=== PATIENT | male | born 1940 | race Caucasian/White ===

== ENCOUNTER 2016-07-21 07:39 | Emergency (ER) | payer OTHER ==
[~2016-07-21] VITALS: Ht 180.3 cm; Wt 66.4 kg
[~2016-07-21 07:39] MED LIST: ALBUTEROL SULF8.5 GM IH; LEVAQUIN750 MG PO
[2016-07-21 09:09] LABS: HEMATOCRIT 42.1 % (38.0-50.0); MCH 28.6 PG (29.0-34.0); MCHC 32.5 G/DL (30.0-36.0); MCV 87.9 FL (86-99); MEAN PLAT.VOLUME 8.8 uM^3 (9.0-12.4); PLATELET COUNT 252 K/uL (156-360); RBC DIS.WIDTH-SD 41.7 % (39-53); RED BLOOD COUNT 4.79 M/uL (4.00-5.50); WHITE BLOOD COUNT 5.6 K/uL (4.1-10.2)
[2016-07-21 09:18] LABS: CHLORIDE 105 mEq/L (99-109); POTASSIUM 3.5 mEq/L (3.7-5.4); SODIUM 141 mEq/L (136-147)
[2016-07-21 09:20] LABS: GLUCOSE 92 mg/dL (70-99)
[2016-07-21 09:21] LABS: ANION GAP 9 MEQ/L (2-14)
[2016-07-21 09:24] LABS: GFR ESTIMATE (CALCULATED) 48 mL/min/
[2016-07-21 09:25] LABS: UREA NITROGEN (BUN) 35 mg/dL (9-23)
[2016-07-21] MEDS ORDERED: IBUPROFEN600 MG PO (09:38)
[2016-07-21] MEDS ORDERED: TESTOSTERO200 MG/12 IM (09:39)
[2016-07-21] MEDS ORDERED: LEVOTHYROXINE50 MCG PO (09:39)
[2016-07-21] MEDS ORDERED: ATORVASTATIN CA10 MG PO (09:40)
[2016-07-21] MEDS ORDERED: POTASSIUM CHLO20 ME1 PO (09:40)
[2016-07-21 11:56] VITALS: BP 119/64
== END 2016-07-21 11:58 | disposition home or self-care (01) ==
LOC: EME 07:39
DX: E86.0 Dehydration (principal); R04.0 Epistaxis
CPT/HCPCS: 80048; 85027; 86900; 86901; 99281; 99284

== ENCOUNTER → 2017-09-18 | Outpatient (CLI) | payer OTHER ==
[~2017-09-18] MED LIST changes: +AMILORIDE HCL-1 EACH PO; +ATORVASTATIN CA10 MG PO; +BROMOCRIPTINE2.5 MG PO; +IBUPROFEN600 MG PO; +LEVOTHYROXINE50 MCG PO; +POTASSIUM CHLO20 ME1 PO; +TESTOSTERO200 MG/12 IM
== END | disposition home or self-care (01) ==
LOC: AMB 07:44
PROC: 0JB10ZZ Excision of Face Subcutaneous Tissue and Fascia, Open Approach (ICD-10-PCS; principal; 2017-09-18)
DX: C44.319 Basal cell carcinoma of skin of other parts of face (principal); Z85.828 Personal history of other malignant neoplasm of skin
CPT/HCPCS: 88305